=== PATIENT | male | born 1945 | race Caucasian/White ===

== ENCOUNTER → 2020-03-09 | Outpatient (CLI) | payer MEDICARE ==
--- NOTE | 2020-03-09 17:15 | US ---
EXAMINATION TYPE: US venous doppler duplex LE LT DATE OF EXAM: 03/09/2020 5:01 PM COMPARISON: NONE CLINICAL HISTORY: I80.9 Phlebitis. Patient states leg hurt after lifting garage door. On aspirin. N o hx DVT. SIDE PERFORMED: Left TECHNIQUE: The lower extremity deep venous system is examined utilizing real time linear array sonog srini with graded compression, doppler sonography and color-flow sonography. VESSELS IMAGED: External Iliac Vein (EIV) Common Femoral Vein Deep Femoral Vein Greater Saphenous Vein * Femoral Vein Popliteal Vein Small Saphenous Vein * Proximal Calf Veins (* superficial vessels) Left Leg: Negative for DVT Grayscale, color doppler, spectral doppler imaging performed of the deep veins of the left lower extr emity. There is normal flow, compressibility, vascular waveforms. IMPRESSION: No ultrasound evidence for acute DVT in the left lower extremity.
== END | disposition home or self-care (01) ==
LOC: RADUSWWP 16:36
PROVIDERS: ATTEND Orthopaedic Surgery
DX: M25.572 Pain in left ankle and joints of left foot (principal); S86.122A Laceration of other muscle(s) and tendon(s) of posterior muscle group at lower leg level, left leg, initial encounter; M72.2 Plantar fascial fibromatosis

== ENCOUNTER → 2021-02-19 | Outpatient (CLI) | payer MEDICARE ==
--- NOTE | 2021-02-24 09:13 | P.ARTDOP ---
Arterial Doppler LOWER EXTREMITY ARTERIAL DOPPLER: DATE OF SERVICE: 02/19/2021: Reason for study: Leg weakness. Doppler waveforms: Multiphasic bilaterally throughout. Pulse volume recording: []. Pressure gradients: None. Ankle-brachial indices: Greater than 1 bilaterally. Toe brachial indices: 0.88 on the right, 0.85 on the left Impression: Normal study.
== END | disposition home or self-care (01) ==
LOC: RADUSWWP 12:09
PROVIDERS: ATTEND Family Medicine
DX: I25.10 Atherosclerotic heart disease of native coronary artery without angina pectoris (principal); E11.21 Type 2 diabetes mellitus with diabetic nephropathy; M62.81 Muscle weakness (generalized)
CPT/HCPCS: 93922

== ENCOUNTER → 2021-04-05 | Outpatient (CLI) | payer MEDICARE ==
[2021-04-05 13:21] LABS: Calcium 9.9 mg/dL (8.4-10.2); Potassium 4.4 mmol/L (3.5-5.1)
[2021-04-05 13:22] LABS: Basophils # (A) 0.1 k/uL (0-0.2); Basophils % (A) 1 %; Eosinophils # (A) 0.1 k/uL (0-0.7); Eosinophils % (A) 2 %; HGB 15.6 gm/dL (13.0-17.5); Lymphocytes # (A) 1.6 k/uL (1.0-4.8); Lymphocytes % (A) 21 %; MCH 26.6 pg (25.0-35.0); MCHC 31.8 g/dL (31.0-37.0); MCV 83.8 fL (80.0-100.0); Monocytes # (A) 0.5 k/uL (0-1.0); Monocytes % (A) 7 %; Neutrophils # (A) 5.3 k/uL (1.3-7.7); Neutrophils % (A) 69 %; Platelet Count 197 k/uL (150-450); RBC 5.85 m/uL (4.30-5.90); RDW 15.5 % (11.5-15.5); WBC 7.7 k/uL (3.8-10.6)
[2021-04-05 14:00] LABS: Appearance,Urine Clear (Clear); Bacteria,Urine Rare /hpf; Bilirubin,Urine Negative (Negative); Blood,Urine Negative (Negative); Color,Urine Light Yellow; Glucose,Urine (UA) 4+ (Negative); Ketones,Urine Negative (Negative); Leukocyte Esterase,Urine Small (Negative); Mucus,Urine Rare /hpf; Nitrite,Urine Negative (Negative); PH, Urine 6.5 (5.0-8.0); Protein,Urine Negative (Negative); Urobilinogen,Urine <2.0 mg/dL (<2.0); WBC,Urine 11 /hpf (0-5)
== END | disposition home or self-care (01) ==
LOC: LABPAT 11:56
PROVIDERS: ATTEND Urology
DX: Z01.812 Encounter for preprocedural laboratory examination (principal); N40.1 Benign prostatic hyperplasia with lower urinary tract symptoms; E11.9 Type 2 diabetes mellitus without complications; N13.8 Other obstructive and reflux uropathy
CPT/HCPCS: 36415; 80048; 81001; 85025; 87086

== ENCOUNTER 2021-04-12 06:11 | Day surgery (SDC) | payer MEDICARE ==
[2021-04-07 10:37] VITALS: BMI 30.9
--- NOTE | 2021-04-11 19:02 | P.HPIHPCON ---
History of Present Illness H&P Date: 04/09/21 This is a 75 yo male with hx of BPH and recurrent UTIs. He underwent a cystoscopy and uroflow which showed evidence of low flow and an obstructive bilateral lateral lobes of the prostate, he has not had improvement in symptoms despite medical therapy. Surgical options were discussed with him, he agreed to proceed with Urolift. Discussed with him the risk which includes but not limited to bleeding, infection, urinary incontinence, persistent urinary symptoms and medical complication from surgery. He understood all risks and agreed to proceed Consent for Procedure: I have explained the operation/procedure to the patient, including the risks, benefits, side effects, alternative therapies (including not receiving the proposed treatment or service), the likelihood of the patient achieving his/her goals, and potential recuperation problems for the procedure/sedation/analgesia, as well as any blood products, if indicated. I also explained to the patient the risks, benefits and side effects of the alternatives, as well as the risks related to not receiving the proposed procedure, care, treatment, or services. Past Medical History Past Medical History: Cancer, Diabetes Mellitus, Hypertension, Pneumonia, Prosta te Disorder, Sleep Apnea/CPAP/BIPAP Additional Past Medical History / Comment(s): COVID 01/19/21, hx migraines, "slight cardiomyopathy", no cpap used, hx skin cancer, sepsis 2013, slight "slightly compromised kidneys", chronic prostatitis, limping due to bad hip History of Any Multi-Drug Resistant Organisms: None Reported Past Surgical History: Appendectomy Additional Past Surgical History / Comment(s): skin cancer removed from scalp and rt ear, hydrocele repair, Past Anesthesia/Blood Transfusion Reactions: No Reported Reaction Smoking Status: Never smoker - Past Family History Mother Family Medical History: No Reported History Medications and Allergies Home Medications Medication Instructions Recorded Confirmed Type Alfuzosin HCl [Alfuzosin HCl ER] 10 mg PO HS 04/07/21 04/07/21 History Ascorbic Acid [Vitamin C] 500 mg PO DAILY 04/07/21 04/07/21 History Aspirin [Adult Low Dose Aspirin EC] 81 mg PO HS 04/07/21 04/07/21 History Carvedilol [Coreg] 25 mg PO BID 04/07/21 04/07/21 History Cholecalciferol (Vitamin D3) 4,000 unit PO DAILY 04/07/21 04/07/21 History [Vitamin D3 (4,000 Iu)] Cyanocobalamin (Vitamin B-12) 1,000 mcg PO DAILY 04/07/21 04/07/21 History [Vitamin B-12] Doxycycline Hyclate 100 mg PO DAILY 04/07/21 04/07/21 History Empagliflozin [Jardiance] 10 mg PO DAILY 04/07/21 04/07/21 History Eplerenone [Inspra] 25 mg PO Q2D 04/07/21 04/07/21 History Multivitamins, Thera [Multivitamin 1 tab PO DAILY 04/07/21 04/07/21 History (formulary)] [place] 3 Cap 1 tab PO DAILY 04/07/21 04/07/21 History Pravastatin Sodium [Pravachol] 40 mg PO HS 04/07/21 04/07/21 History Saw [place] Tab 450 mg PO BID 04/07/21 04/07/21 History Selenium 200 mcg PO DAILY 04/07/21 04/07/21 History Ubidecarenone [Co Q-10] 200 mg PO DAILY 04/07/21 04/07/21 History Valsartan [Diovan] 320 mg PO DAILY 04/07/21 04/07/21 History Vitamin B Complex 1 each PO DAILY 04/07/21 04/07/21 History Zinc 50 mg PO DAILY 04/07/21 04/07/21 History amLODIPine [Norvasc] 10 mg PO DAILY 04/07/21 04/07/21 History hydroCHLOROthiazide [Hydrodiuril] 25 mg PO DAILY 04/07/21 04/07/21 History sitaGLIPtin PHOSPHATE [Januvia] 50 mg PO DAILY 04/07/21 04/07/21 History Allergies Allergy/AdvReac Type Severity Reaction Status Date / Time Sulfa (Sulfonamide Allergy Rash/Hives Verified 04/07/21 10:16 Antibiotics) metro(antibiotic) Allergy Nausea & Uncoded 04/07/21 10:16 Vomiting/dehydration Surgical - Exam - General well developed, well nourished, no distress, no pain - Eyes PERRL, normal ocular movement - ENT normal nares, normal mucosa - Respiratory normal expansion, normal respiratory effort - Psychiatric oriented to time, oriented to person, oriented to place Assessment and Plan Assessment: 75 yo male with hx of BPH -OR for Urolift
[~2021-04-12 06:11] MED LIST: DEXAMETHASONE SOD PHOSPHATE 4 MG/ML 1 ML VIAL IV ONE; HYDROmorphone 0.5 MG/0.5 ML SYRINGE IVP PRN; LIDOCAINE 1% (10MG/ML) FOR IV START INTRADERMA PRN; MIDAZOLAM 2 MG/2 ML VIAL IV PRN; ONDANSETRON 4 MG/2 ML VIAL IVP ONE
[2021-04-12 07:02] LABS: Glucose,Whole Blood 137 mg/dL (75-99)
[2021-04-12] MEDS: LACTATED RINGERS 1,000 ML IV SCH ×2 (07:05→07:40)
[2021-04-12] MEDS ORDERED: PROPOFOL 10 MG/ML 20 ML VIAL IV ONE (07:38)
[2021-04-12] MEDS ORDERED: fentaNYL (PF) 50 MCG/ML 2 ML AMP ONE (07:38)
[2021-04-12] MEDS ORDERED: MIDAZOLAM 2 MG/2 ML VIAL ONE (07:38)
[2021-04-12 08:35] VITALS: RESP 16; TEMP 97.3
--- NOTE | 2021-04-12 08:40 | P.OP ---
Date of Procedure: 04/12/21 Preoperative Diagnosis: BPH Postoperative Diagnosis: Same Procedure(s) Performed: Cystoscopy, Urolift Implants: Urolith implants 4 Anesthesia: GETA Surgeon: Alonso Padilla Estimated Blood Loss (ml): 5 Pathology: none sent Condition: stable Disposition: PACU Indications for Procedure: This is a 75 yo male with hx of BPH and recurrent UTIs. He underwent a cystoscopy and uroflow which showed evidence of low flow and an obstructive bilateral lateral lobes of the prostate, he has not had improvement in symptoms despite medical therapy. Surgical options were discussed with him, he agreed to proceed with Urolift. Discussed with him the risk which includes but not limited to bleeding, infection, urinary incontinence, persistent urinary symptoms and medical complication from surgery. He understood all risks and agreed to proceed Operative Findings: Bilateral obstructive lateral lobes Description of Procedure: Patient was brought to the operating room, general anesthesia was induced. He was prepped and draped in sterile fashion and placed in dorsal lithotomy position. Cystoscopy fitted with 20-Bengali sheath was inserted per urethra, cystoscopy was performed which showed no abnormality within the bladder, of note patient had bilateral obstructive lateral lobes. Attention was then carried to the urolift implants. A total of 4 implants were placed, 2 on the right side, and 2 on the left side. Implants were placed distal to the bladder neck, but proximal to the Veru. Repeat cystoscopy showed no evidence of implant perforation into the bladder. Repeat cystoscopy also demonstrated an open anterior channel within the prostate. There was no evidence of bleeding, bladder was emptied at end of the case. Patient tolerated the procedure well was taken to PACU in stable condition
[2021-04-12 09:40] VITALS: PULSE 63
[2021-04-12 10:06] VITALS: BP 126/67
== END 2021-04-12 10:19 | disposition home or self-care (01) ==
LOC: OR 06:11
PROVIDERS: ATTEND Urology
DX: N40.0 Benign prostatic hyperplasia without lower urinary tract symptoms (principal); Z87.440 Personal history of urinary (tract) infections; Z86.16 Personal history of COVID-19; Z85.828 Personal history of other malignant neoplasm of skin; G47.33 Obstructive sleep apnea (adult) (pediatric); I12.9 Hypertensive chronic kidney disease with stage 1 through stage 4 chronic kidney disease, or unspecified chronic kidney disease; E11.22 Type 2 diabetes mellitus with diabetic chronic kidney disease; N18.9 Chronic kidney disease, unspecified; Z88.2 Allergy status to sulfonamides; Z88.8 Allergy status to other drugs, medicaments and biological substances
CPT/HCPCS: L8699; J2250; J1100; J0690; J2405; J3010; J2704; C9740

== ENCOUNTER → 2021-04-26 | Outpatient (CLI) | payer MEDICARE ==
[2021-04-26 10:40] LABS: HCT 44.9 % (39.0-53.0); MCH 27.6 pg (25.0-35.0); MCHC 33.3 g/dL (31.0-37.0); Mean Platelet Volume 9.1; Platelet Count 206 k/uL (150-450); RBC 5.41 m/uL (4.30-5.90); RDW 15.4 % (11.5-15.5); WBC 8.1 k/uL (3.8-10.6)
[2021-04-26 10:50] LABS: Partial Thromboplastin Time 23.6 sec (22.0-30.0); Prothrombin Time 10.6 sec (9.0-12.0)
[2021-04-26 10:53] LABS: Appearance,Urine Clear (Clear); Bacteria,Urine Rare /hpf; Bilirubin,Urine Negative (Negative); Blood,Urine Negative (Negative); Color,Urine Light Yellow; Glucose,Urine (UA) 4+ (Negative); Ketones,Urine Negative (Negative); Leukocyte Esterase,Urine Large (Negative); Nitrite,Urine Negative (Negative); Protein,Urine Negative (Negative); Specific Gravity,Urine 1.006 (1.001-1.035); Squamous Epithelial Cell,Urine <1 /hpf (0-4); Urobilinogen,Urine <2.0 mg/dL (<2.0); WBC,Urine 22 /hpf (0-5)
[2021-04-26 11:00] LABS: Calcium 9.6 mg/dL (8.4-10.2); Potassium 4.6 mmol/L (3.5-5.1); Total Bilirubin 0.7 mg/dL (0.2-1.3); Total Protein 6.9 g/dL (6.3-8.2)
== END | disposition home or self-care (01) ==
LOC: LABPAT 10:01
PROVIDERS: ATTEND Orthopaedic Surgery
DX: Z01.812 Encounter for preprocedural laboratory examination (principal); Z01.810 Encounter for preprocedural cardiovascular examination
CPT/HCPCS: 36415; 80053; 81001; 85027; 85610; 85730; 87070

== ENCOUNTER 2021-05-04 10:27 | Day surgery (SDC) | payer MEDICARE ==
[2021-04-27 11:51] VITALS: BMI 30.7
[~2021-05-04 10:27] MED LIST changes: +ACETAMINOPHEN TAB 500 MG TAB PO PRN; -DEXAMETHASONE SOD PHOSPHATE 4 MG/ML 1 ML VIAL IV ONE; +GABAPENTIN 300 MG CAP PO PRN; +HYDROcodone/APAP 7.5-325MG 1 EACH TAB PO PRN; +HYDROmorphone 0.2 MG/1 ML SYRINGE IVP PRN; -LIDOCAINE 1% (10MG/ML) FOR IV START INTRADERMA PRN; +MAGNESIUM HYDROXIDE 2,400 MG/10 ML CUP PO PRN; +MELOXICAM 7.5 MG TAB PO PRN; -MIDAZOLAM 2 MG/2 ML VIAL IV PRN; +NALOXONE 0.4 MG/ML 1 ML VIAL IV PRN; -ONDANSETRON 4 MG/2 ML VIAL IVP ONE; +ONDANSETRON 4 MG/2 ML VIAL IVP PRN; +TRANEXAMIC ACID 1,000 MG in SODIUM CHLORIDE 0.9% 100 ML IVPB PRN
[2021-05-04] MEDS ORDERED: LACTATED RINGERS 1,000 ML IV ONE ×2 (10:51→12:37)
[2021-05-04 11:02] LABS: Glucose,Whole Blood 123 mg/dL (75-99)
[2021-05-04] MEDS ORDERED: SODIUM CHLORIDE 0.9% 100 ML BAG ONE (11:15)
[2021-05-04] MEDS ORDERED: PROPOFOL 10 MG/ML 20 ML VIAL IV ONE (11:15)
[2021-05-04] MEDS ORDERED: TRANEXAMIC ACID 1,000 MG/10 ML VIAL ONE (11:15)
[2021-05-04] MEDS ORDERED: PHENYLEPHRINE-0.9% NACL SYG 1,000 MCG/10 ML SYRINGE ONE (11:15)
[2021-05-04] MEDS ORDERED: MIDAZOLAM 2 MG/2 ML VIAL ONE (11:15)
[2021-05-04] MEDS ORDERED: LIDOCAINE 1% INJ 10MG/ML (20 ML MDV) ONE (11:15)
[2021-05-04] MEDS ORDERED: diphenhydrAMINE 50 MG/ML 1 ML VIAL ONE (11:15)
[2021-05-04] MEDS ORDERED: ceFAZolin 1,000 MG in SODIUM CHLORIDE 0.9% 1,000 ML IRRIGATION ONE (11:18)
[2021-05-04] MEDS: ROPIVACAINE/EPI/CLONIDINE/KET 50 ML SYRINGE MISCELLANE PRN ×2 (11:48→12:26)
--- NOTE | 2021-05-04 12:36 | P.OP ---
Date of Procedure: 05/04/21 Preoperative Diagnosis: Severe osteoarthritis left hip Postoperative Diagnosis: Severe osteoarthritis left hip Procedure(s) Performed: Left total hip arthroplasty with a direct anterior approach Implants: [employer] Polarstem standard size 6 [employer] R3, 3 hole hemispherical acetabular shell, 54 mm [employer] Reflection 6.5 mm cancellus screw, 20 mm, 25 mm [employer] R3, XLPE 20 acetabular liner [employer] Oxinium femoral head 36 m, +4 All components were press-fit. The articulation is Oxinium on polyethylene. Anesthesia: spinal Surgeon: Gabriel Angela Applications Sales Consultant #1: Mahsa Durham Estimated Blood Loss (ml): 150 Pathology: other (Femoral head) Condition: stable Disposition: PACU Indications for Procedure: After failure of conservative treatment we discussed the surgical and nonsurgi willy treatment options at length. Patient wishes to proceed with a total hip arthroplasty with a direct anterior approach. Complications specific to this procedure were discussed at length, including but not limited to infection, leg length discrepancy, dislocation, nerve injury, and fracture. Covid-19 was also discussed at length with the patient, and they are aware of the current policies and procedures. The patient was given the option of delaying surgery, but they elect to proceed knowing these risks. Patient is aware of all these complications and informed consent was obtained Operative Findings: The operative findings are consistent with severe osteoarthritis of the left hip Description of Procedure: Patient was seen and evaluated in the preoperative area and the consent was reviewed. The operative site was marked with a skin marker. The patient was then brought to the operating room and given preoperative antibiotics intravenously. 1 g of Tranexamic acid was also given intravenously. A spinal anesthetic was administered by the anesthesia department. The patient was then placed on the [place] table with the bony prominences well-padded. The hip area was then prepped with a ChloraPrep solution and draped in the usual sterile fashion. A universal timeout was then performed, which confirmed the patient's name, surgical site, ALLERGIES, and procedure being performed on the consent. Next the incision site was located at 1 cm distal to the anterior superior iliac spine along the flexion crease of the hip. The skin and subcutaneous tissues were sharply incised. Incision was carefully dissected down to the fascia overlying the tensor fascia julio muscle. This fascia was then incised in line with the incision. Care was taken to stay laterally in order to avoid injuring the lateral femoral cutaneous nerve. Next, using blunt finger dissection, the tensor fascia julio muscle was dissected off its investing fascia. The muscle was then carefully retracted laterally with a cobra retractor over the lateral neck of the femur. Next, the circumflex vessels were identified and cauterized using the AquaMantis device. The anterior hip capsule was then exposed. The capsule was then opened and an inverted T fashion. Cobra retractors were then placed intracapsularly. The retractors were maintained intracapsular throughout the procedure. The proximal femur was then visualized. A small amount of traction was placed on the leg. The femoral neck was then osteotomized appropriate level above the lesser trochanter. A small wedge of bone was then removed from the remaining femoral head. Next, using a corkscrew the femoral head was removed from the acetabulum. On gross visual inspection, the femoral head had complete loss of articular cartilage and multiple periarticular osteophytes. The femoral head was then measured. Attention was then turned to the acetabulum. The acetabulum was exposed and any remaining labrum was excised. Sequential reaming of the acetabulum was performed using fluoroscopic guidance until there was a good bed of bleeding cancellus bone. When the appropriate size was reached, a trial was then placed. The position and fit of the trial was checked with fluoroscopy. The trial was then removed. Then, using fluoroscopic guidance, the final implant was impacted at 20 of anteversion and 40 of abduction, and fully seated in the acetabulum. 2 screws were then placed in the acetabulum. Again fluoroscopy was used to check position of the screws. Next, the liner was then impacted, with a 20 elevated liner located in the anterior superior quadrant. Component locking was confirmed. Attention was then directed to the femur. With the aid of the [place] table, the femur was externally rotated to approximately 130, extended, and adducted under the opposite leg. A side hook was then placed under the proximal femur, and the side hook elevator was used to elevate the proximal femur while releasing the capsule. Retractors were then placed. A capsular release was performed, as well as a release of the conjoined tendon, which afforded excellent visualiz ation of the proximal femur. Next, a box osteotome was used to lateralize the proximal femur. A handhole machine operator was then used to locate the femoral canal. Sequential broaching was then performed with appropriate size which afforded excellent fixation in the proximal femur. A trial was then placed with appropriate head and neck, and the hip was gently reduced with the aid of the [place] table. Fluoroscopy was then used to check position of the components, as well as to ensure equal leg lengths. The hip was then gently dislocated and the trials were then removed. Final implants were then impacted and the hip was again reduced. Final fluoroscopic x-rays confirmed that the components were in anatomic position, as well as equal leg lengths. The hip was also taken through range of motion, and found to be stable. The hip was then copiously irrigated with antibiotic solution with pulsatile lavage. The hip was then irrigated with Irrisept solution. The soft tissues were then injected with a ropivacaine solution, which consisted of 246.25 mg of ropivacaine, 0.5 mg of epinephrine, 30 mg of Toradol, 80 g of clonidine, and 48.45 mL of sterile water, for a total of 100 mL of fluid injected. A second dose of 1 g of Tranexamic acid was also given intravenously. Any blood collected by [employer]ver was then returned to the patient at this time. The fascia was then closed with 2-0 strata fix suture. The subcutaneous tissue was closed with 3-0 Vicryl. The subcuticular tissue was closed with 3-0 strata fix suture. The skin was then closed with Exofin skin glue. After the glue and dried, and Optifoam silver impregnated dressing was applied. The patient was then transferred to the recovery room in stable condition. The research assistant member KIM Mueller was required due to the complexity of surgery, and the need for skilled assistant unit forester for positioning, draping, exposure, retraction, and closure of the wound.
--- NOTE | 2021-05-04 13:18 | FL ---
Fluoroscopy HISTORY: Anterior hip replacement 19 seconds fluoroscopy time supplied to the referring clinician. 6 intraoperative C-arm images docum ent the procedure. See dictated report from orthopedic surgery.
[2021-05-04 14:21] LABS: Glucose,Whole Blood 163 mg/dL (75-99)
[2021-05-04] MEDS: SODIUM CHLORIDE 0.9% 1,000 ML IV SCH ×2 (16:28→16:51)
[2021-05-04 16:35] LABS: Glucose,Whole Blood 169 mg/dL (75-99)
[2021-05-04] MEDS: carvediloL 12.5 MG TAB PO SCH (17:29)
[2021-05-04] MEDS: HYDROcodone/APAP 7.5-325MG 1 EACH TAB PO PRN ×2 (17:29→23:33)
[2021-05-04] MEDS: INSULIN ASPART (NovoLOG) 100 UNIT/ML VIAL SQ SCH ×2 (17:30→20:43)
[2021-05-04 20:32] LABS: Glucose,Whole Blood 214 mg/dL (75-99)
[2021-05-04] MEDS: ASPIRIN 81 MG PO SCH (20:42)
[2021-05-04] MEDS ORDERED: ASPIRIN 325 MG TAB PO SCH (21:00)
[2021-05-04] MEDS ORDERED: PRAVASTATIN SODIUM 40 MG TAB PO SCH (21:00)
[2021-05-04] MEDS ORDERED: ASPIRIN 81 MG PO SCH (21:00)
[2021-05-04] MEDS ORDERED: SENNOSIDES-DOCUSATE SODIUM 1 EACH TAB PO SCH (21:00)
--- NOTE | 2021-05-04 21:47 | P.CONS ---
History of Present Illness - Reason for Consult Consult date: 05/04/21 Medical management - Chief Complaint Status post left total hip arthroplasty. - History of Present Illness Patient is a 75-year-old male with a known history of hypertension, diabetes type 2 [id number], chronic kidney disease stage III with baseline creatinine around 1.3, obstructive sleep apnea on CPAP, cardiomyopathy with improved ejection fraction 50 to 55%, history of prostatitis, BPH status post UroLift on 04/12/2021 and other multiple medical problems including osteoarthritis admitted to the hospital for left total hip arthroplasty. Patient tolerated the procedure very well. Currently denies any complaints of left hip pain. No nausea vomiting or abdominal pain. No fever no chills. No chest pain or shortness of breath. Previous laboratory data reviewed Blood sugar is 214. Patient states that his blood sugar is usually well controlled at home. Patient states that he is taking Keflex 500 mg twice 3 times daily for his recent prostatitis. Patient does have a prior history of E. coli and Klebsiella urinary tract infection.Denies any dysuria or hematuria. Review of Systems Constitutional: Patient denies any fever or chills . No generalized weakness or weight loss. Abdomen: Patient denied nausea vomiting and diarrhea and abdominal pain. Cardiovascular: Patient denies any chest pain or short of breath no palpitations. Respiratory: patient denied any cough or sputum production. No shortness of breath Neurologic: Patient denied any numbness or tingling headache. Musculoskeletal: Patient denies any complaints of joint swelling or deformity. Skin: Negative Psychiatric: Negative Endocrine: No heat or cold intolerance. No recent weight gain. Genitourinary: No dysuria or hematuria. All other 14 point ROS negative except the above Past Medical History Past Medical History: Cancer, Diabetes Mellitus, Hypertension, Pneumonia, Prostate Disorder, Renal Disease, Sleep Apnea/CPAP/BIPAP Additional Past Medical History / Comment(s): "Cardiomyopathy 50-55%." "Kidneys sl compromised." Not using cpap. Hx sepsis 2013. Hx prostatitis, had surg 04/12/21. Covid 01/20/21, mild. Varicose vein x1. Hx migraines, chronic sinus drainage. History of Any Multi-Drug Resistant Organisms: None Reported Past Surgical History: Appendectomy, Heart Catheterization Additional Past Surgical History / Comment(s): Hydrocele repair 2006. Cysto, Urolift 04/12/21. Past Anesthesia/Blood Transfusion Reactions: No Reported Reaction Past Psychological History: No Psychological Hx Reported Smoking Status: Never smoker Past Alcohol Use History: Occasional Past Drug Use History: None Reported - Past Family History Mother Family Medical History: No Reported History Medications and Allergies Home Medications Medication Instructions Recorded Confirmed Type Ascorbic Acid [Vitamin C] 500 mg PO DAILY 04/07/21 04/27/21 History Aspirin [Adult Low Dose Aspirin EC] 81 mg PO HS 04/07/21 04/27/21 History Carvedilol [Coreg] 25 mg PO BID 04/07/21 04/27/21 History Cholecalciferol (Vitamin D3) 4,000 unit PO DAILY 04/07/21 04/27/21 History [Vitamin D3 (4,000 Iu)] Cyanocobalamin (Vitamin B-12) 1,000 mcg PO DAILY 04/07/21 04/27/21 History [Vitamin B-12] Doxycycline Hyclate 100 mg PO DAILY 04/07/21 04/27/21 History Empagliflozin [Jardiance] 10 mg PO DAILY 04/07/21 04/27/21 History Eplerenone [Inspra] 25 mg PO Q2D 04/07/21 04/27/21 History Multivitamins, Thera [Multivitamin 1 tab PO DAILY 04/07/21 04/27/21 History (formulary)] [place] 3 Cap 1 tab PO DAILY 04/07/21 04/27/21 History Pravastatin Sodium [Pravachol] 40 mg PO HS 04/07/21 04/27/21 History Saw [place] Tab 450 mg PO BID 04/07/21 04/27/21 History Selenium 200 mcg PO DAILY 04/07/21 04/27/21 History Valsartan [Diovan] 320 mg PO DAILY 04/07/21 04/27/21 History Vitamin B Complex 1 each PO DAILY 04/07/21 04/27/21 History Zinc 50 mg PO DAILY 04/07/21 04/27/21 History amLODIPine [Norvasc] 10 mg PO DAILY 04/07/21 04/27/21 History hydroCHLOROthiazide [Hydrodiuril] 25 mg PO DAILY 04/07/21 04/27/21 History sitaGLIPtin PHOSPHATE [Januvia] 50 mg PO DAILY 04/07/21 04/27/21 History Ibuprofen 600 mg PO Q8H PRN #20 tab 04/12/21 04/27/21 Rx Ubidecarenone [Co Q-10] 200 mg PO DAILY 04/27/21 04/27/21 History Aspirin [Adult Low Dose Aspirin EC] 81 mg PO BID 30 Days #60 tablet. 05/04/21 Rx HYDROcodone/APAP 7.5-325MG [[place] 1 - 2 tab PO Q6H PRN #32 tab 05/04/21 Rx 7.5-325] Ondansetron Odt [Zofran Odt] 1 tab PO Q8HR PRN #10 tab 05/04/21 Rx Sennosides [Senokot] 2 tab PO DAILY PRN #60 tablet 05/04/21 Rx Allergies Allergy/AdvReac Type Severity Reaction Status Date / Time Sulfa (Sulfonamide Allergy Rash/Hives Verified 04/27/21 11:04 Antibiotics) metronidazole AdvReac GI upset Verified 04/30/21 13:35 Physical Exam Vitals: Vital Signs Temp Pulse Pulse Resp BP BP Pulse Ox 05/04/21 19:04 97.8 F 83 16 123/69 90 L 05/04/21 16:18 98.4 F 72 16 116/71 97 05/04/21 16:10 72 16 116/71 97 05/04/21 15:39 82 16 127/70 94 L 05/04/21 15:15 81 18 113/59 95 05/04/21 14:45 72 16 144/83 94 L 05/04/21 14:15 66 16 126/72 97 05/04/21 13:45 65 14 116/64 94 L 05/04/21 13:30 62 16 114/66 96 05/04/21 13:18 60 16 113/69 95 05/04/21 13:03 68 16 112/66 96 05/04/21 12:49 97.0 F L 63 16 110/63 98 05/04/21 10:50 97.6 F 72 18 112/67 95 Intake and Output 05/04/21 05/04/21 05/04/21 06:59 14:59 22:59 Intake Total 1051 480 Output Total 125 Balance 926 480 Intake: IV 1051 Oral 480 Output: Estimated Blood Loss 125 Other: Weight 86.183 kg PHYSICAL EXAMINATION: Patient is lying in the bed comfortably, no acute distress, awake alert and oriented.. HEENT: Normocephalic. Neck is supple. Pupils reactive. Nostrils clear. Oral cavity is moist. Ears reveal no drainage. Neck reveals no JVD, carotid bruits, or thyromegaly. CHEST EXAMINATION: Trachea is central. Symmetrical expansion. Lung franco clear to auscultation and percussion. CARDIAC: Normal S1, S2 with no gallops. No murmurs ABDOMEN: Soft. Bowel sounds normal. No organomegaly. No abdominal bruits. Extremities: reveal no edema. No clubbing or cyanosis Neurologically awake, alert, oriented x3 with well-coordinated movements. No focal deficits noted Skin: No rash or skin lesions. Psychiatric: Coperative. Nonsuicidal Musculoskeletal: No joint swelling or deformity. Normal range of motion. Results Labs: Abnormal Lab Results - Last 24 Hours (Table) 05/04/21 05/04/21 05/04/21 Range/Units 10:57 14:19 16:34 POC Glucose (mg/dL) 123 H 163 H 169 H (75-99) mg/dL 05/04/21 Range/Units 20:30 POC Glucose (mg/dL) 214 H (75-99) mg/dL Assessment and Plan Assessment: Status post left total hip arthroplasty postoperative day 0. Hyperglycemia likely postoperative stress related. 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 Previous history of E. coli and Klebsiella pneumonia urinary tract infection BPH status post UroLift on 04/12/2021 DVT prophylaxis Plan: Patient will be continued pain management, bowel regimen, incentive spirometry and encourage ambulation. Continue with home blood pressure medications starting from tomorrow and continue with insulin sliding scale while in the hospital. Follow-up A1c level. Patient is currently on Keflex 500 mg 3 times daily for recent acute prostatitis. Will follow up culture report and further recommendations based on the clinical course. Thank you for your consult.
[2021-05-05 06:58] LABS: Glucose,Whole Blood 118 mg/dL (75-99)
[2021-05-05] MEDS: INSULIN ASPART (NovoLOG) 100 UNIT/ML VIAL SQ SCH (07:06)
[2021-05-05 07:16] VITALS: BP 130/65; PULSE 68; RESP 18; TEMP 97.8
[2021-05-05] MEDS: carvediloL 12.5 MG TAB PO SCH (08:02)
[2021-05-05] MEDS: ASPIRIN 81 MG PO SCH (08:02)
[2021-05-05 08:53] LABS: African American GFR (CKD) 56 (>60 ml/min/1.73 sqM); Anion Gap 8 mmol/L; Blood Urea Nitrogen 30 mg/dL (9-20); Calcium 8.8 mg/dL (8.4-10.2); Carbon Dioxide 25 mmol/L (22-30); Chloride 109 mmol/L (98-107); Glucose 114 mg/dL (74-99); Non-African American GFR(CKD) 49 (>60 ml/min/1.73 sqM); Potassium 4.4 mmol/L (3.5-5.1); Sodium 142 mmol/L (137-145)
[2021-05-05] MEDS ORDERED: Eplerenone [Inspra] 25 MG Tablet PO SCH (09:00)
[2021-05-05] MEDS ORDERED: NON FORMULARY DRUG (Selenium [Selenium] 100 MCG Tablet) PO SCH (09:00)
[2021-05-05] MEDS ORDERED: MULTIVITAMINS, THERA 1 EACH TAB PO SCH (09:00)
[2021-05-05] MEDS ORDERED: amLODIPine 10 MG TAB PO SCH (09:00)
[2021-05-05] MEDS ORDERED: VALSARTAN 160 MG TAB PO SCH (09:00)
[2021-05-05] MEDS ORDERED: CYANOCOBALAMIN 500 MCG TAB PO SCH (09:00)
[2021-05-05] MEDS ORDERED: MELOXICAM 7.5 MG TAB PO SCH (09:00)
--- NOTE | 2021-05-05 11:05 | P.DS ---
Providers Expected date of discharge: 05/05/21 Attending physician: Gabriel Angela Consults: 05/04/21 09:01 Consult Physician Routine Consulting Provider: Farhat Foster III Consult Reason/Comments: medical management Do you want consulting provider notified?: Yes Primary care physician: Farhat Foster - Discharge Diagnosis(es) (1) Primary localized osteoarthritis of left hip Current Visit: Yes Status: Acute (2) Status post total replacement of left hip Current Visit: Yes Status: Acute Hospital Course: This is a 75-year-old male with known history of degenerative arthritis of the left hip. The patient presents for evaluation. After discussion and consideration patient elects to proceed with total left hip arthroplasty with direct anterior approach. The patient is seen preoperatively by his primary care physician and cleared for surgery. Patient is admitted to [facility] on 05/04/2021 for total left hip arthroplasty with direct anterior approach. The procedures performed without complication or sequelae. The patient is doing well postoperatively. Labs and vital signs are stable on day of discharge. On day of discharge patient's Optifoam dressing is intact There is no drainage noted at this time. There is minimal soft tissue swelling to the hip and thigh. Patient has full foot and ankle motion without difficulty or pain. Neurovascular status to the left lower extremity is intact. Patient is discharged to home in good condition. Please see med rec for accurate list of home medications. Patient Condition at Discharge: Good Plan - Discharge Summary Discharge Rx Participant: No New Discharge Prescriptions: New Aspirin [Adult Low Dose Aspirin EC] 81 mg PO BID 30 Days #60 tablet. HYDROcodone/APAP 7.5-325MG [[place] 7.5-325] 1 - 2 tab PO Q6H PRN #32 tab PRN Reason: Pain Ondansetron Odt [Zofran Odt] 1 tab PO Q8HR PRN #10 tab PRN Reason: Nausea Sennosides [Senokot] 2 tab PO DAILY PRN #60 tablet PRN Reason: Constipation No Action sitaGLIPtin PHOSPHATE [Januvia] 50 mg PO DAILY Valsartan [Diovan] 320 mg PO DAILY Empagliflozin [Jardiance] 10 mg PO DAILY amLODIPine [Norvasc] 10 mg PO DAILY Doxycycline Hyclate 100 mg PO DAILY Carvedilol [Coreg] 25 mg PO BID Eplerenone [Inspra] 25 mg PO Q2D Selenium 200 mcg PO DAILY Vitamin B Complex 1 each PO DAILY Cyanocobalamin (Vitamin B-12) [Vitamin B-12] 1,000 mcg PO DAILY Ascorbic Acid [Vitamin C] 500 mg PO DAILY Zinc 50 mg PO DAILY Ubidecarenone [Co Q-10] 200 mg PO DAILY hydroCHLOROthiazide [Hydrodiuril] 25 mg PO DAILY [place] 3 Cap 1 tab PO DAILY Multivitamins, Thera [Multivitamin (formulary)] 1 tab PO DAILY Cholecalciferol (Vitamin D3) [Vitamin D3 (4,000 Iu)] 4,000 unit PO DAILY [place] Tab 450 mg PO BID Pravastatin Sodium [Pravachol] 40 mg PO HS Aspirin [Adult Low Dose Aspirin EC] 81 mg PO HS Ibuprofen 600 mg PO Q8H PRN #20 tab PRN Reason: Pain Discharge Medication List Ascorbic Acid [Vitamin C] 500 mg PO DAILY 04/07/21 [History] Aspirin [Adult Low Dose Aspirin EC] 81 mg PO HS 04/07/21 [History] Carvedilol [Coreg] 25 mg PO BID 04/07/21 [History] Cholecalciferol (Vitamin D3) [Vitamin D3 (4,000 Iu)] 4,000 unit PO DAILY 04/07/21 [History] Cyanocobalamin (Vitamin B-12) [Vitamin B-12] 1,000 mcg PO DAILY 04/07/21 [History] Doxycycline Hyclate 100 mg PO DAILY 04/07/21 [History] Empagliflozin [Jardiance] 10 mg PO DAILY 04/07/21 [History] Eplerenone [Inspra] 25 mg PO Q2D 04/07/21 [History] Multivitamins, Thera [Multivitamin (formulary)] 1 tab PO DAILY 04/07/21 [History] [place] 3 Cap 1 tab PO DAILY 04/07/21 [History] Pravastatin Sodium [Pravachol] 40 mg PO HS 04/07/21 [History] [place] Tab 450 mg PO BID 04/07/21 [History] Selenium 200 mcg PO DAILY 04/07/21 [History] Valsartan [Diovan] 320 mg PO DAILY 04/07/21 [History] Vitamin B Complex 1 each PO DAILY 04/07/21 [History] Zinc 50 mg PO DAILY 04/07/21 [History] amLODIPine [Norvasc] 10 mg PO DAILY 04/07/21 [History] hydroCHLOROthiazide [Hydrodiuril] 25 mg PO DAILY 04/07/21 [History] sitaGLIPtin PHOSPHATE [Januvia] 50 mg PO DAILY 04/07/21 [History] Ibuprofen 600 mg PO Q8H PRN #20 tab 04/12/21 [Rx] Ubidecarenone [Co Q-10] 200 mg PO DAILY 04/27/21 [History] Aspirin [Adult Low Dose Aspirin EC] 81 mg PO BID 30 Days #60 tablet. 05/04/21 [Rx] HYDROcodone/APAP 7.5-325MG [[place] 7.5-325] 1 - 2 tab PO Q6H PRN #32 tab 05/04/21 [Rx] Ondansetron Odt [Zofran Odt] 1 tab PO Q8HR PRN #10 tab 05/04/21 [Rx] Sennosides [Senokot] 2 tab PO DAILY PRN #60 tablet 05/04/21 [Rx] Follow up Appointment(s)/Referral(s): Farhat Foster III, MD [Primary Care Provider] - 05/12/21 9:30 am [facility], [NON-STAFF] - As Needed Gabriel Angela DO [Doctor of Osteopathic Medicine] - 2 Weeks Activity/Diet/Wound Care/Special Instructions: Weightbearing as tolerated with walker. Leave dressing intact. Dressing may be removed by home care nurse or by patient in 7 days. Then change dressing twice daily until follow up. May shower with initial dressing intact and after removal. If dressing become saturated, please remove. Please take aspirin 81mg twice daily for 30 days to prevent blood clots. Recommend use of compression stockings daily until follow up to help prevent swelling and blood clots. May remove at night before sleeping. Please follow-up with [facility] in 2 weeks and call with any questions or concerns, . Discharge Disposition: HOME WITH HOME HEALTH SERVICES
[2021-05-05 11:34] LABS: Glucose,Whole Blood 146 mg/dL (75-99)
[2021-05-05 12:06] LABS: Basophils # (A) 0.01 X 10*3/uL (0.00-0.10); Basophils % (A) 0.1 %; Eosinophils # (A) 0 X 10*3/uL (0.04-0.35); Eosinophils % (A) 0 %; HCT 38.9 % (39.6-50.0); HGB 12.4 g/dL (13.0-17.0); Lymphocytes # (A) 0.81 X 10*3/uL (0.90-5.00); Lymphocytes % (A) 7.3 %; MCH 27.4 pg (27.0-32.0); MCHC 31.9 g/dL (32.0-37.0); MCV 85.9 fL (80.0-97.0); Mean Platelet Volume 12.1 fL (9.5-12.2); Monocytes # (A) 0.78 X 10*3/uL (0.20-1.00); Monocytes % (A) 7.1 %; Neutrophils # (A) 9.38 X 10*3/uL (1.80-7.70); Platelet Count 196 X 10*3/uL (140-440); RBC 4.53 X 10*6/uL (4.40-5.60); WBC 11.03 X 10*3/uL (4.50-10.00)
[2021-05-05 16:28] LABS: Hemoglobin A1C 6.8 % (4.0-6.0)
--- NOTE | 2021-05-07 16:25 | P.PN ---
Subjective Progress Note Date: 05/05/21 Principal diagnosis: Status post left total hip arthroplasty postoperative day 1. Patient is a 75-year-old male with a known history of hypertension, diabetes type 2 [id number], chronic kidney disease stage III with baseline creatinine around 1.3, obstructive sleep apnea on CPAP, cardiomyopathy with improved ejection fraction 50 to 55%, history of prostatitis, BPH status post UroLift on 04/12/2021 and other multiple medical problems including osteoarthritis admitted to the hospital for left total hip arthroplasty. Patient tolerated the procedure very well. Currently denies any complaints of left hip pain. No nausea vomiting or abdominal pain. No fever no chills. No chest pain or shortness of breath. Previous laboratory data reviewed Blood sugar is 214. Patient states that his blood sugar is usually well controlled at home. Patient states that he is taking Keflex 500 mg twice 3 times daily for his recent prostatitis. Patient does have a prior history of E. coli and Klebsiella urinary tract infection.Denies any dysuria or hematuria. 05/15/2021 Patient is currently sitting in the chair comfortably.. Awake alert and oriented 3. No complaints of chest pain or shortness of breath. Left hip pain is controlled. Blood pressure is stable. Previous urine culture showed E. coli which is sensitive to tetracyclines. Patient was recommended to continue doxycycline at this time. Follow up with his urologist and primary care physician. No fever no chills. No other acute overnight issues. Denied any dysuria or hematuria or abdomen pain. Discharge medications reconciliation was done and current medications reviewed. Objective - Vital Signs Vital signs: Vital Signs Temp 97.8 F 05/05/21 07:15 Pulse 68 05/05/21 07:15 Resp 18 05/05/21 07:15 BP 130/65 05/05/21 07:15 Pulse Ox 96 05/05/21 07:15 Intake & Output 05/04/21 05/05/21 05/05/21 18:59 06:59 18:59 Intake Total 1531 240 Output Total 125 Balance 1406 240 Weight 86.183 kg Intake: IV 1051 Oral 480 240 Output: Estimated Blood Loss 125 Other: Voiding Method Toilet Toilet - Exam PHYSICAL EXAMINATION: Patient is lying in the bed comfortably, no acute distress, awake alert and oriented.. HEENT: Normocephalic. Neck is supple. Pupils reactive. Nostrils clear. Oral cavity is moist. Neck reveals no JVD, carotid bruits, or thyromegaly. CHEST EXAMINATION: Trachea is central. Symmetrical expansion. Lung franco clear to auscultation and percussion. CARDIAC: Normal S1, S2 with no gallops. No murmurs ABDOMEN: Soft. Bowel sounds normal. No organomegaly. No abdominal bruits. Extremities: reveal no edema. No clubbing or cyanosis Neurologically awake, alert, oriented x3 with well-coordinated movements. No focal deficits noted Skin: No rash or skin lesions. Psychiatric: Coperative. Nonsuicidal Musculoskeletal: No joint swelling or deformity. Normal range of motion. - Labs CBC & Chem 7: 05/05/21 07:25 05/05/21 07:25 Labs: Abnormal Lab Results - Last 24 Hours (Table) 05/04/21 05/04/21 05/04/21 Range/Units 14:19 16:34 20:30 Chloride (98-107) mmol/L BUN (9-20) mg/dL Creatinine (0.66-1.25) mg/dL Glucose (74-99) mg/dL POC Glucose (mg/dL) 163 H 169 H 214 H (75-99) mg/dL 05/05/21 05/05/21 05/05/21 Range/Units 06:57 07:25 11:33 Chloride 109 H (98-107) mmol/L BUN 30 H (9-20) mg/dL Creatinine 1.40 H (0.66-1.25) mg/dL Glucose 114 H (74-99) mg/dL POC Glucose (mg/dL) 118 H 146 H (75-99) mg/dL Assessment and Plan Assessment: Status post left total hip arthroplasty postoperative day 1. Hyperglycemia likely postoperative stress related. 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 Previous history of E. coli and Klebsiella pneumonia urinary tract infection BPH status post UroLift on 04/12/2021 DVT prophylaxis Plan: Patient will be continued pain management, bowel regimen, incentive spirometry and encourage ambulation. Continue with home blood pressure medications and continue with insulin sliding scale while in the hospital. Continue with home dose of hypoglycemic agents. Patient is being discharged home today. Follow with primary care physician in 1-3 days.
== END 2021-05-05 12:53 | disposition home health service (06) ==
LOC: OR 10:27 → 4SSUR 12:44 → OR 05-05 12:53
PROVIDERS: ATTEND Orthopaedic Surgery
DX: M16.12 Unilateral primary osteoarthritis, left hip (principal); I10 Essential (primary) hypertension; G47.33 Obstructive sleep apnea (adult) (pediatric); E11.9 Type 2 diabetes mellitus without complications; N28.9 Disorder of kidney and ureter, unspecified; Z88.1 Allergy status to other antibiotic agents; Z88.2 Allergy status to sulfonamides; G43.909 Migraine, unspecified, not intractable, without status migrainosus; Z91.19 Patient's noncompliance with other medical treatment and regimen; I42.9 Cardiomyopathy, unspecified
CPT/HCPCS: 97161; 97165; 86900; 86901; 80048; 85025; 86850; 88300; 83036; 73501; 27130; C1776; J2250; J1200; J0690 ×3; J2405; J2001; J2370; J2704

== ENCOUNTER → 2023-03-20 | Outpatient (CLI) | payer MEDICARE ==
--- NOTE | 2023-03-20 10:32 | US ---
EXAMINATION TYPE: US abdomen complete DATE OF EXAM: 03/20/2023 COMPARISON: CT CLINICAL INDICATION: Male, 77 years old with history of R10.11 RUQ PAIN; Pt states right side abdomen pain TECHNIQUE: Multiple sonographic images of the abdomen are obtained. FINDINGS: EXAM MEASUREMENTS: Liver Length: 17.4 cm Gallbladder Wall: 0.2 cm CBD: 0.6 cm Spleen: 10.3 cm Right Kidney: 11.5 x 4.8 x 4.3 cm Left Kidney: 12.1 x 5.5 x 5.2 cm [employer] NOTES: Pancreas: Obscured by bowel gas Liver: Heterogeneous with two hypoechoic areas within the right lobe 1)= 2.0 cm 2)= 1.7 cm ?fatty sparing Gallbladder: wnl Evidence for sonographic Ortiz's sign: No CBD: wnl Spleen: wnl Right Kidney: Anechoic lesion mid.medial= 1.1 x 0.8 x 1.0 cm Left Kidney: Anechoic lesion lateral.lower= 1.9 x 1.8 x 1.9 cm, Anechoic lesion upper.medial= 1.2 x 0.9 x 1.0 cm Upper IVC: wnl Abd Aorta: Proximal portion gassed out, mid and distal portion wnl The liver is homogenous. The intrahepatic portion of the IVC and proximal abdominal aorta are within normal limits. There is no evidence of cholelithiasis. Common bile duct is unremarkable. The visu alized portions of the pancreas are homogenous. The spleen is unremarkable. Kidneys are symmetric a nd free of hydronephrosis. IMPRESSION: Renal cystic changes. Hepatic cystic changes noted as well.
== END | disposition home or self-care (01) ==
LOC: RADUSWWP 08:44
PROVIDERS: ATTEND Family Medicine
DX: Q44.6 Cystic disease of liver (principal); Q61.9 Cystic kidney disease, unspecified
CPT/HCPCS: 76700

== ENCOUNTER → 2024-06-03 | Outpatient (CLI) | payer MEDICARE | END | disposition home or self-care (01) | LOC: LABPAT 12:49 | PROVIDERS: ATTEND Orthopaedic Surgery | DX: Z01.812 Encounter for preprocedural laboratory examination (principal); M16.11 Unilateral primary osteoarthritis, right hip | CPT/HCPCS: 85027 ==

== ENCOUNTER 2024-06-11 11:00 | Day surgery (SDC) | payer MEDICARE ==
[2024-06-11 10:18] LABS: Glucose,Whole Blood 132 mg/dL (70-110)
[~2024-06-11 11:00] MED LIST changes: +ACETAMINOPHEN TAB 500 MG TAB ONE; -ACETAMINOPHEN TAB 500 MG TAB PO PRN; +DEXAMETHASONE SOD PHOSPHATE 4 MG/ML 1 ML VIAL ONE; +GABAPENTIN 300 MG CAP ONE; -GABAPENTIN 300 MG CAP PO PRN; -HYDROcodone/APAP 7.5-325MG 1 EACH TAB PO PRN; -HYDROmorphone 0.2 MG/1 ML SYRINGE IVP PRN; -HYDROmorphone 0.5 MG/0.5 ML SYRINGE IVP PRN; -MAGNESIUM HYDROXIDE 2,400 MG/10 ML CUP PO PRN; +MELOXICAM 7.5 MG TAB ONE; -MELOXICAM 7.5 MG TAB PO PRN; +MIDAZOLAM 2 MG/2 ML VIAL ONE; -NALOXONE 0.4 MG/ML 1 ML VIAL IV PRN; -ONDANSETRON 4 MG/2 ML VIAL IVP PRN; +ONDANSETRON 4 MG/2 ML VIAL ONE; +ROPIVACAINE 5 MG/ML 30 ML VIAL ONE; +SODIUM CHLORIDE 0.9% (PF) VIAL 0 ML ONE; -TRANEXAMIC ACID 1,000 MG in SODIUM CHLORIDE 0.9% 100 ML IVPB PRN; +fentaNYL (PF) 50 MCG/ML 2 ML AMP ONE
[2024-06-11] MEDS ORDERED: PHENYLEPHRINE 10 MG/ML VIAL ONE (11:36)
[2024-06-11] MEDS ORDERED: PROPOFOL 10 MG/ML 20 ML VIAL IV ONE (11:36)
[2024-06-11] MEDS ORDERED: MIDAZOLAM 2 MG/2 ML VIAL ONE (11:36)
[2024-06-11] MEDS ORDERED: LIDOCAINE 1% INJ 10MG/ML (20 ML MDV) ONE (11:36)
[2024-06-11] MEDS ORDERED: fentaNYL (PF) 50 MCG/ML 2 ML AMP ONE (11:36)
[2024-06-11] MEDS ORDERED: ePHEDrine 50 MG/ML 1 ML VIAL ONE (11:36)
[2024-06-11] MEDS ORDERED: ceFAZolin 1,000 MG VIAL ONE ×2 (12:09→23:59)
[2024-06-11] MEDS ORDERED: ROPIVACAINE 5 MG/ML 30 ML VIAL ONE (12:09)
[2024-06-11] MEDS ORDERED: SODIUM CHLORIDE 0.9% 1,000 ML BAG ONE (12:09)
[2024-06-11 16:32] LABS: Glucose,Whole Blood 134 mg/dL (70-110)
[2024-06-11] MEDS ORDERED: SODIUM CHLORIDE 0.9% 50 ML BAG ONE (23:59)
[2024-06-12] MEDS ORDERED: HYDROcodone/APAP 5-325MG 1 EACH TAB ONE ×2 (05:12)
--- NOTE | 2024-07-30 18:21 | FL ---
EXAMINATION TYPE: FL guidance operating room, XR Hip Limited RT DATE OF EXAM: 07/05/2024 1:21 PM COMPARISON: Pre Operative Images if available both CT/MRI or plain film CLINICAL INDICATION: Male, 78 years old with history of RIGHT ANT HIP; TECHNIQUE: FL guidance operating room, XR Hip Limited RT, multiple fluoroscopic images provided for p rocedure. Total fluoroscopy time: 34 seconds Total submitted images to PACS: 3 DAP: 2.4123 mGym2 Gycm2 uGym2 cGycm2 or equivalent. FINDINGS: Fluoroscopic images during internal fixation/arthroplasty demonstrate fixation hardware in appropriat e position. Hardware appears intact. No immediate complication identified. Left hip arthroplasty also appears intact. IMPRESSION: 1. No evidence for intraoperative complication. 2. Please see the operative/procedural note for further details. [facility], , 07/30/2024 6:18 PM
== END 2024-06-12 12:45 | disposition home or self-care (01) ==
LOC: OR 11:00 → 4SSUR 11:39 → UNDOADMIN 11:39 → 4SSUR 16:14 → OR 06-12 12:45 → UNDODISIN 06-12 13:13
PROVIDERS: ATTEND Orthopaedic Surgery
DX: M16.11 Unilateral primary osteoarthritis, right hip (principal); Z79.899 Other long term (current) drug therapy; Z79.84 Long term (current) use of oral hypoglycemic drugs; Z79.82 Long term (current) use of aspirin; N40.0 Benign prostatic hyperplasia without lower urinary tract symptoms; Z88.2 Allergy status to sulfonamides; E78.49 Other hyperlipidemia; I12.9 Hypertensive chronic kidney disease with stage 1 through stage 4 chronic kidney disease, or unspecified chronic kidney disease; E11.22 Type 2 diabetes mellitus with diabetic chronic kidney disease; N18.2 Chronic kidney disease, stage 2 (mild)
CPT/HCPCS: 64447; 73501